=== PATIENT | male | born 1985 | race Caucasian/White ===

== ENCOUNTER 2021-01-26 09:33 | Day surgery (SDC) | payer OTHER ==
[~2021-01-26] VITALS: Ht 208.3 cm; Wt 127.8 kg
[~2021-01-26 09:33] MED LIST: ALBU90OI INH; BENADRYL25 MG PO; CELEXA40 MG PO; CYCL10 PO; DEPO-TESTO200 MG/1 M IM; ESOM20 PO; FLUC100; Flovent 44 mc10.6 GM INH; IBUP800 PO; NAPR500 PO; Naprosyn500 MG PO; Norco 10-325 T1 EACH PO; Omeprazole20 M1 PO; PROM25 PO; Peridex480 ML SS; Prednisone50 MG PO; Prilosec Otc20 MG PO; Veetids 500500 MG PO
--- NOTE | 2021-01-26 11:21 | NUR ---
01/26/21 1121 Isi Ferraro PT SCHEDULED NURSE SEDATION. 3 YEARS AGO PT REQUIRED ANESTHESIOLOGIST INTERVENTION DUE TO DIFFICULTY SEDADING. DR HERNANDEZ ASSUMED THE CASE. 5ML LIDOCAINE 4% INHALATTION GIVEN TO PT AT THIS TIME PER DR HERNANDEZ
== END 2021-01-26 12:27 | disposition home or self-care (01) ==
LOC: ORSCSDS 09:33
PROVIDERS: Internal Medicine Gastroenterology
PROC: 0DB58ZX Excision of Esophagus, Via Natural or Artificial Opening Endoscopic, Diagnostic (ICD-10-PCS; principal; 2021-01-26 10:45)
PROC: 0DB98ZX Excision of Duodenum, Via Natural or Artificial Opening Endoscopic, Diagnostic (ICD-10-PCS; principal; 2021-01-26 10:45)
DX: K20.0 Eosinophilic esophagitis (principal); K21.9 Gastro-esophageal reflux disease without esophagitis; J45.909 Unspecified asthma, uncomplicated; F17.210 Nicotine dependence, cigarettes, uncomplicated; F32.9 Major depressive disorder, single episode, unspecified; Z79.899 Other long term (current) drug therapy
CPT/HCPCS: 88305; J2001; J2704; J7120

== ENCOUNTER 2021-03-15 02:30 | Emergency (ER) | payer OTHER | END 2021-03-15 05:35 | disposition home or self-care (01) | LOC: ER 02:30 | DX: S60.222A Contusion of left hand, initial encounter (principal); Z87.891 Personal history of nicotine dependence; Z79.899 Other long term (current) drug therapy; W23.0XXA Caught, crushed, jammed, or pinched between moving objects, initial encounter; Y92.89 Other specified places as the place of occurrence of the external cause; Y99.0 Civilian activity done for income or pay | CPT/HCPCS: 73130; 96372; 99283-25; J1885 ==

== ENCOUNTER 2023-08-13 05:07 | Emergency (ER) | payer OTHER ==
[~2023-08-13] VITALS: Ht 208.3 cm; Wt 122.5 kg
[2023-08-13 05:31] VITALS: BP 126/78
[2023-08-13] MEDS ORDERED: PRED20 PO (05:53)
[2023-08-13] MEDS ORDERED: HYDROCORTISONE30 GM EXT (05:53)
== END 2023-08-13 06:01 | disposition home or self-care (01) ==
LOC: ER 05:07
DX: L23.7 Allergic contact dermatitis due to plants, except food (principal); Z88.8 Allergy status to other drugs, medicaments and biological substances; Z87.891 Personal history of nicotine dependence
CPT/HCPCS: 99283

== ENCOUNTER 2024-08-01 16:04 | Emergency (ER) | payer OTHER ==
[~2024-08-01] VITALS: Ht 210.8 cm; Wt 117.9 kg
[~2024-08-01 16:04] MED LIST changes: +HYDROCORTISONE30 GM EXT; +PRED20 PO
[2024-08-01 16:08] VITALS: BP 139/96
[2024-08-01] MEDS ORDERED: AMOCLA875 PO (19:15)
[2024-08-01] MEDS ORDERED: Amoxicillin/Clavulanate K 875 MG Tab PO ONE (19:15)
[2024-08-01] MEDS ORDERED: Ketorolac Tromethamine 15mg Vial IM ONE (19:15)
== END 2024-08-01 19:45 | disposition home or self-care (01) ==
LOC: ER 16:04
DX: K08.89 Other specified disorders of teeth and supporting structures (principal); Z87.891 Personal history of nicotine dependence; Z79.899 Other long term (current) drug therapy; Z91.018 Allergy to other foods; Z91.010 Allergy to peanuts; Z91.030 Bee allergy status
CPT/HCPCS: 96372; 99282-25; A9270; J1885